=== PATIENT | male | born 1975 | race Caucasian/White ===

== ENCOUNTER 2021-10-20 07:49 | Day surgery (SDC) | payer OTHER ==
[~2021-10-20] VITALS: Ht 175.3 cm; Wt 69.3 kg
[~2021-10-20 07:49] MED LIST: ACET500
--- NOTE | 2021-10-20 09:02 | NUR ---
10/20/21 0902 Autumn [place] SIMETHICONE USED DURING PROCEDURE.
== END 2021-10-20 09:55 | disposition home or self-care (01) ==
LOC: ORSCSDS 07:49
PROVIDERS: Student in an Organized Health Care Education/Training Program
PROC: 0DBN8ZX Excision of Sigmoid Colon, Via Natural or Artificial Opening Endoscopic, Diagnostic (ICD-10-PCS; principal; 2021-10-20 09:00)
DX: K62.5 Hemorrhage of anus and rectum (principal); D12.5 Benign neoplasm of sigmoid colon; K57.30 Diverticulosis of large intestine without perforation or abscess without bleeding; K64.8 Other hemorrhoids
CPT/HCPCS: 88305; J2250; J2704; J7120